=== PATIENT | male | born 1995 | race Caucasian/White ===

== ENCOUNTER 2017-07-23 16:59 | Emergency (ER) | payer OTHER ==
[2017-07-23] MEDS ORDERED: TORADOL 60 MG VIAL IM ONE (17:14)
[2017-07-23] MEDS ORDERED: TORADOL 60 MG VIAL ONE (17:16)
[2017-07-23 17:26] VITALS: BP 136/78; BMI 33.0
[2017-07-23] MEDS ORDERED: STERILE WATER IRRIGATION IR ONE (17:48)
--- NOTE | 2017-07-23 17:50 | RAD ---
Right shoulder, two views Indication: Fall with shoulder pain Comparison: None Findings: There is a comminuted fracture of the mid right clavicle with approximately 1 shaft width i nferior displacement of the distal fragment. The AC joint and coracoclavicular interval are maintaine d. Glenohumeral joint alignment is anatomic. Soft tissues are unremarkable. Impression: Mildly displaced fracture of the mid right clavicle, as above. Reported By:
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
== END 2017-07-23 18:09 | disposition home or self-care (01) ==
LOC: ER 17:13
DX: S42.022A Displaced fracture of shaft of left clavicle, initial encounter for closed fracture (principal); V86.59XA Driver of other special all-terrain or other off-road motor vehicle injured in nontraffic accident, initial encounter; Y92.9 Unspecified place or not applicable
CPT/HCPCS: 73030; 96372; 99282; A4217; J1885